=== PATIENT | female | born 1960 | race Caucasian/White ===

== ENCOUNTER 2022-04-23 20:03 | Inpatient (IN) | payer MEDICARE, MEDICAID ==
[~2022-04-23] VITALS: Ht 162.6 cm; Wt 81.2 kg
[2022-04-23] MEDS ORDERED: ACETAMINOPHEN 325MG TABLET PO ONE (22:30)
[2022-04-23] MEDS ORDERED: IBUPROFEN 400MG TABLET PO ONE (22:30)
[2022-04-23 23:11] LABS: HEMATOCRIT. 25.9 % (36.0-48.0); HEMOGLOBIN. 8.5 g/dL (12.0-16.0); MEAN CORPUSCULAR HEMOGLOBIN 32.3 pg (28.0-32.0); MEAN PLATELET VOLUME 8.2 fl (7.4-10.4); PLATELET 362 x1000/uL (130-400); RED BLOOD CELL COUNT 2.65 mill/uL (4.2-5.4); RED CELL DISTRIBUTION WIDTH 19.1 % (11.6-14.6)
[2022-04-23 23:17] LABS: CHLORIDE 98 mEq/L (98-107)
[2022-04-23 23:22] LABS: PLATELET ESTIMATE NORMAL
[2022-04-23] MEDS ORDERED: AZITHROMYCIN 500MG/250ML 250 ML IV NR (23:30)
[2022-04-23] MEDS ORDERED: CEFTRIAXONE 1 G PREMIX 50 ML IV NR (23:30)
[2022-04-24] MEDS ORDERED: VANCOMYCIN 1G PREMIX 200 ML IV NR
[2022-04-24 00:28] LABS: CLARITY URINE CLEAR (CLEAR); COLOR URINE DARK YELLOW (YELLOW); KETONES URINE NEGATIVE (NEGATIVE); LEUKOCYTE ESTERASE URINE NEGATIVE (NEGATIVE); NITRITE URINE NEGATIVE (NEGATIVE); OCCULT BLOOD URINE NEGATIVE (NEGATIVE); PROTEIN URINE 2+ (NEGATIVE); SPECIFIC GRAVITY URINE 1.015 (1.005-1.030); UROBILINOGEN URINE 0.2 E.U./dL (0.2-1.0)
[2022-04-24] MEDS ORDERED: DEXTROSE 50% WATER 50ML SYRINGE IV PRN (01:45)
[2022-04-24] MEDS ORDERED: ONDANSETRON HCL 4MG/2ML INJ IV PRN (01:45)
[2022-04-24] MEDS ORDERED: IPRATROPIUM/ALBUTEROL 0.5-3(2.5)MG/3ML NEB NEB PRN (01:45)
[2022-04-24] MEDS ORDERED: CLONIDINE 0.1MG TABLET PO PRN (01:45)
[2022-04-24] MEDS ORDERED: ACETAMINOPHEN 325MG TABLET PO PRN (01:45)
[2022-04-24] MEDS ORDERED: AZITHROMYCIN 250 MG in DEXT 5% WATER 250 ML IV SCH (01:45)
[2022-04-24] MEDS ORDERED: MAGNESIUM/ALUMINUM HYDROXIDE/SIMETHICONE 30ML UDC PO PRN (01:45)
[2022-04-24] MEDS ORDERED: CEFTRIAXONE 1 G PREMIX 50 ML IV NR (02:30)
[2022-04-24 03:30] LABS: TOTAL IRON BINDING CAPACITY 182 ug/dL (250-450)
[2022-04-24 03:58] LABS: FOLIC ACID (FOLATE) SERUM 18.4 ng/mL (>5.38)
[2022-04-24] MEDS ORDERED: GUAIFENESIN 200MG/10ML SUGAR FREE UDC PO PRN (04:00)
[2022-04-24 04:40] LABS: CHLORIDE 96 mEq/L (98-107)
[2022-04-24] MEDS ORDERED: CYANOCOBALAMIN 1000MCG/ML VIAL IM NR (05:00)
[2022-04-24 05:02] LABS: HDL CHOLESTEROL 21 mg/dL (40-59); LDL CHOLESTEROL 71 mg/dL (5-100)
[2022-04-24] MEDS ORDERED: AZITHROMYCIN 500MG in DEXTROSE 5% WATER 250ML IV SCH (06:00)
[2022-04-24] MEDS: NIFEDIPINE 10MG CAPSULE PO SCH ×3 (06:00→21:56)
[2022-04-24 06:16] LABS: HEMATOCRIT. 24.1 % (36.0-48.0); HEMOGLOBIN. 7.7 g/dL (12.0-16.0); MEAN CORPUSCULAR HEMOGLOBIN 31.4 pg (28.0-32.0); MEAN PLATELET VOLUME 8.1 fl (7.4-10.4); PLATELET 338 x1000/uL (130-400); RED BLOOD CELL COUNT 2.46 mill/uL (4.2-5.4); RED CELL DISTRIBUTION WIDTH 18.6 % (11.6-14.6)
[2022-04-24 06:32] LABS: CREATINE KINASE 40 IU/L (26-192); CREATINE KINASE MB FRACTION < 1.0 ng/mL (0.5-3.6); PHOSPHORUS 4.7 mg/dL (2.5-4.9)
[2022-04-24] MEDS: BLOOD SUGAR DIAGNOSTIC STRIP TEST SCH ×4 (06:47→21:55)
[2022-04-24] MEDS: INSULIN LISPRO 100 UNITS/ML SUBCUT SCH ×4 (07:00→21:00)
[2022-04-24 08:00] VITALS: BP 115/84
[2022-04-24] MEDS: MULTIVITAMINS,THER W-MINERALS TABLET PO SCH (09:00)
[2022-04-24] MEDS: CARVEDILOL 6.25 MG TABLET PO SCH ×2 (09:00→21:53)
[2022-04-24] MEDS: FAMOTIDINE 20MG/2ML VIAL IV SCH (09:00)
[2022-04-24 09:16] VITALS: BP 123/53
[2022-04-24] MEDS: APIXABAN 2.5 MG TABLET PO SCH ×2 (09:32→17:54)
[2022-04-24] MEDS: ACETAMINOPHEN 325MG TABLET PO PRN ×2 (09:37→21:53)
[2022-04-24 10:52] LABS: PLATELET ESTIMATE NORMAL
[2022-04-24 11:59] VITALS: BP 123/53
[2022-04-24 12:00] VITALS: BP 121/48
[2022-04-24] MEDS: IPRATROPIUM/ALBUTEROL 0.5-3(2.5)MG/3ML NEB NEB SCH ×2 (13:45→19:45)
[2022-04-24 16:00] VITALS: BP 129/63
[2022-04-24 16:50] LABS: CREATINE KINASE 44 IU/L (26-192); CREATINE KINASE MB FRACTION < 1.0 ng/mL (0.5-3.6)
[2022-04-24 20:00] VITALS: BP 133/61
[2022-04-24] MEDS: AZITHROMYCIN 500MG in DEXTROSE 5% WATER 250ML IV SCH (21:54)
[2022-04-24] MEDS: CEFTRIAXONE 1,000 MG in DEXTROSE 5% WATER 50 ML IV SCH (21:54)
[2022-04-24] MEDS: NEOMYCIN-POLYMYXIN-HYDROCORTISONE 1% OTIC SUSP 10ML RIGHT EAR SCH (22:04)
[2022-04-25] VITALS: BP 109/52
[2022-04-25] MEDS: IPRATROPIUM/ALBUTEROL 0.5-3(2.5)MG/3ML NEB NEB SCH ×3 (02:54→16:10)
[2022-04-25 04:00] VITALS: BP 149/62
[2022-04-25] MEDS: ACETAMINOPHEN 325MG TABLET PO PRN ×2 (04:45→17:42)
[2022-04-25] MEDS: NEOMYCIN-POLYMYXIN-HYDROCORTISONE 1% OTIC SUSP 10ML RIGHT EAR SCH ×4 (04:46→17:42)
[2022-04-25 07:32] LABS: HEMATOCRIT. 21.4 % (36.0-48.0); HEMOGLOBIN. 7.3 g/dL (12.0-16.0); MEAN CORPUSCULAR HEMOGLOBIN 32.9 pg (28.0-32.0); MEAN CORPUSCULAR VOLUME 96.7 fL (81.0-99.0); MEAN PLATELET VOLUME 8.4 fl (7.4-10.4); PLATELET 330 x1000/uL (130-400); RED BLOOD CELL COUNT 2.21 mill/uL (4.2-5.4); RED CELL DISTRIBUTION WIDTH 18.1 % (11.6-14.6)
[2022-04-25] MEDS: BLOOD SUGAR DIAGNOSTIC STRIP TEST SCH ×4 (07:39→21:45)
[2022-04-25] MEDS: INSULIN LISPRO 100 UNITS/ML SUBCUT SCH ×4 (07:39→21:00)
[2022-04-25 08:00] VITALS: BP 153/57
[2022-04-25] MEDS ORDERED: AZITHROMYCIN 500MG in DEXTROSE 5% WATER 250ML IV SCH (08:00)
[2022-04-25] MEDS ORDERED: CEFTRIAXONE 1,000 MG in DEXTROSE 5% WATER 50 ML IV SCH (09:00)
[2022-04-25] MEDS: MULTIVITAMINS,THER W-MINERALS TABLET PO SCH (09:23)
[2022-04-25] MEDS: NIFEDIPINE 10MG CAPSULE PO SCH ×3 (09:24→22:00)
[2022-04-25] MEDS: FAMOTIDINE 20MG/2ML VIAL IV SCH (09:24)
[2022-04-25] MEDS: CARVEDILOL 6.25 MG TABLET PO SCH ×2 (09:24→21:36)
[2022-04-25] MEDS: APIXABAN 2.5 MG TABLET PO SCH ×2 (09:24→17:38)
[2022-04-25] MEDS: VANCOMYCIN 750MG PREMIX 150 ML IV SCH (11:14)
[2022-04-25 12:00] VITALS: BP 117/56
[2022-04-25 16:00] VITALS: BP 121/56
[2022-04-25] MEDS ORDERED: IPRATROPIUM BROMIDE (0.02%) 0.5MG/2.5ML NEB HHN PRN (18:30)
[2022-04-25] MEDS ORDERED: ALBUTEROL (0.083%) 2.5MG/3ML NEB HHN PRN (18:30)
[2022-04-25 19:17] LABS: PLATELET ESTIMATE NORMAL
[2022-04-25 20:00] VITALS: BP 129/61
[2022-04-25] MEDS: ALBUTEROL (0.083%) 2.5MG/3ML NEB HHN SCH (20:40)
[2022-04-25] MEDS: IPRATROPIUM BROMIDE (0.02%) 0.5MG/2.5ML NEB HHN SCH (20:40)
[2022-04-25 21:12] LABS: HEPATITIS B SURFACE ANTIGEN NEGATIVE
[2022-04-25] MEDS: CEFTRIAXONE 1,000 MG in DEXTROSE 5% WATER 50 ML IV SCH (21:30)
[2022-04-25] MEDS: AZITHROMYCIN 500MG in DEXTROSE 5% WATER 250ML IV SCH (22:15)
[2022-04-26] VITALS: BP 136/64
[2022-04-26] MEDS: ACETAMINOPHEN 325MG TABLET PO PRN (00:05)
[2022-04-26 04:00] VITALS: BP 162/68
[2022-04-26] MEDS: NEOMYCIN-POLYMYXIN-HYDROCORTISONE 1% OTIC SUSP 10ML RIGHT EAR SCH ×5 (06:17→23:31)
[2022-04-26] MEDS: INSULIN LISPRO 100 UNITS/ML SUBCUT SCH ×4 (07:50→21:00)
[2022-04-26 08:00] VITALS: BP 143/89
[2022-04-26] MEDS: BLOOD SUGAR DIAGNOSTIC STRIP TEST SCH ×4 (08:19→21:23)
[2022-04-26] MEDS: FAMOTIDINE 20MG TABLET PO SCH (08:59)
[2022-04-26] MEDS: APIXABAN 2.5 MG TABLET PO SCH ×2 (08:59→18:07)
[2022-04-26] MEDS: MULTIVITAMINS,THER W-MINERALS TABLET PO SCH (09:00)
[2022-04-26] MEDS: CARVEDILOL 6.25 MG TABLET PO SCH ×2 (09:00→21:23)
[2022-04-26] MEDS: VANCOMYCIN 750MG PREMIX 150 ML IV SCH (09:05)
[2022-04-26 12:00] VITALS: BP 152/69
[2022-04-26] MEDS: NIFEDIPINE 10MG CAPSULE PO SCH ×2 (14:00→22:09)
[2022-04-26 16:00] VITALS: BP 125/59
[2022-04-26 20:00] VITALS: BP 134/61
[2022-04-26] MEDS: CEFTRIAXONE 1,000 MG in DEXTROSE 5% WATER 50 ML IV SCH (21:23)
[2022-04-26] MEDS: AZITHROMYCIN 500MG in DEXTROSE 5% WATER 250ML IV SCH (22:10)
[2022-04-26] MEDS: ALBUTEROL (0.083%) 2.5MG/3ML NEB HHN SCH (22:42)
[2022-04-26] MEDS: IPRATROPIUM BROMIDE (0.02%) 0.5MG/2.5ML NEB HHN SCH (22:43)
[2022-04-27] VITALS: BP 132/68
[2022-04-27] MEDS: ACETAMINOPHEN 325MG TABLET PO PRN ×2 (01:19→18:52)
[2022-04-27] MEDS: IPRATROPIUM BROMIDE (0.02%) 0.5MG/2.5ML NEB HHN SCH ×3 (02:18→20:30)
[2022-04-27] MEDS: ALBUTEROL (0.083%) 2.5MG/3ML NEB HHN SCH ×3 (02:18→20:30)
[2022-04-27] MEDS: NIFEDIPINE 10MG CAPSULE PO SCH ×3 (06:36→23:37)
[2022-04-27] MEDS: NEOMYCIN-POLYMYXIN-HYDROCORTISONE 1% OTIC SUSP 10ML RIGHT EAR SCH ×4 (06:37→23:39)
[2022-04-27] MEDS: BLOOD SUGAR DIAGNOSTIC STRIP TEST SCH ×4 (06:39→20:11)
[2022-04-27] MEDS: INSULIN LISPRO 100 UNITS/ML SUBCUT SCH ×4 (07:50→20:11)
[2022-04-27 08:00] VITALS: BP 138/87
[2022-04-27] MEDS: APIXABAN 2.5 MG TABLET PO SCH ×2 (09:00→18:51)
[2022-04-27] MEDS: VANCOMYCIN 750MG PREMIX 150 ML IV SCH (09:09)
[2022-04-27] MEDS: MULTIVITAMINS,THER W-MINERALS TABLET PO SCH (09:10)
[2022-04-27] MEDS: CARVEDILOL 6.25 MG TABLET PO SCH ×2 (09:10→20:10)
[2022-04-27] MEDS: FAMOTIDINE 20MG TABLET PO SCH (09:10)
[2022-04-27 12:00] VITALS: BP 136/77
[2022-04-27 16:00] VITALS: BP 129/60
[2022-04-27 18:35] VITALS: BP 129/60
[2022-04-27] MEDS ORDERED: AMOX1TAB16 MT (21:59)
[2022-04-27] MEDS ORDERED: NEOM10SO7 RIGHT EAR (21:59)
[2022-04-27] MEDS: CEFTRIAXONE 1,000 MG in DEXTROSE 5% WATER 50 ML IV SCH (23:25)
[2022-04-27] MEDS: AZITHROMYCIN 500MG in DEXTROSE 5% WATER 250ML IV SCH (23:25)
[2022-04-28] MEDS: ACETAMINOPHEN 325MG TABLET PO PRN ×2 (00:19→09:29)
[2022-04-28] MEDS: ALBUTEROL (0.083%) 2.5MG/3ML NEB HHN SCH ×2 (01:01→08:05)
[2022-04-28] MEDS: IPRATROPIUM BROMIDE (0.02%) 0.5MG/2.5ML NEB HHN SCH ×2 (01:01→08:05)
[2022-04-28 04:00] VITALS: BP 131/60
[2022-04-28] MEDS: NIFEDIPINE 10MG CAPSULE PO SCH ×2 (06:16→14:00)
[2022-04-28] MEDS: NEOMYCIN-POLYMYXIN-HYDROCORTISONE 1% OTIC SUSP 10ML RIGHT EAR SCH ×2 (06:17→13:59)
[2022-04-28] MEDS: BLOOD SUGAR DIAGNOSTIC STRIP TEST SCH ×2 (06:24→12:20)
[2022-04-28 08:00] VITALS: BP 97/46
[2022-04-28] MEDS: CARVEDILOL 6.25 MG TABLET PO SCH (09:00)
[2022-04-28] MEDS: MULTIVITAMINS,THER W-MINERALS TABLET PO SCH (09:20)
[2022-04-28] MEDS: FAMOTIDINE 20MG TABLET PO SCH (09:20)
[2022-04-28] MEDS: APIXABAN 2.5 MG TABLET PO SCH (09:22)
[2022-04-28] MEDS: INSULIN LISPRO 100 UNITS/ML SUBCUT SCH ×2 (09:36→14:09)
[2022-04-28] MEDS: VANCOMYCIN 750MG PREMIX 150 ML IV SCH (09:49)
[2022-04-28 12:00] VITALS: BP 118/79
== END 2022-04-28 14:34 | DRG 193 ==
LOC: ER 20:03 → MICUSO 04-24 01:38 → 6EST 04-24 08:17
PROVIDERS: ADMIT Hospitalist; ATTEND Hospitalist
DX: J18.9 Pneumonia, unspecified organism (principal); I50.33 Acute on chronic diastolic (congestive) heart failure; N17.0 Acute kidney failure with tubular necrosis; I13.0 Hypertensive heart and chronic kidney disease with heart failure and stage 1 through stage 4 chronic kidney disease, or unspecified chronic kidney disease; J06.9 Acute upper respiratory infection, unspecified; D64.9 Anemia, unspecified; N18.9 Chronic kidney disease, unspecified; Z20.822 Contact with and (suspected) exposure to COVID-19; H54.8 Legal blindness, as defined in USA; R73.9 Hyperglycemia, unspecified; D72.829 Elevated white blood cell count, unspecified; N13.9 Obstructive and reflux uropathy, unspecified; Z74.01 Bed confinement status; Z79.01 Long term (current) use of anticoagulants; Z86.73 Personal history of transient ischemic attack (TIA), and cerebral infarction without residual deficits
CPT/HCPCS: 36415; 70486; 71045; 71250; 76770; 80048; 80053; 80061; 80202; 81003; 82040; 82550; 82553; 82607; 82728; 82746; 82962; 83036; 83540; 83550; 83605; 83880; 84100; 84134; 84145; 84439; 84443; 84484; 85025; 85379; 86738; 86803; 87340; 87426; 87804; 93005; 93306; 93970; 94640; 99285; C1893; J0456; J0696; J1815; J3370; J3420; J3490; J7060; A4315